=== PATIENT | female | born 1940 | race Caucasian/White ===

== ENCOUNTER 2020-06-25 12:55 | Emergency (ER) | payer MEDICARE, BC ==
[~2020-06-25] VITALS: Ht 162.6 cm; Wt 52.6 kg
[2020-06-25 13:18] VITALS: BP 126/72
== END 2020-06-25 15:18 | disposition home or self-care (01) ==
LOC: ER 13:05
DX: S60.031A Contusion of right middle finger without damage to nail, initial encounter (principal); X58.XXXA Exposure to other specified factors, initial encounter; Y93.89 Activity, other specified; Y92.89 Other specified places as the place of occurrence of the external cause; Y99.8 Other external cause status
CPT/HCPCS: 73140-TC